=== PATIENT | female | born 1940 | race African-American/Black ===

== ENCOUNTER 2017-07-28 12:29 | Emergency (ER) | payer MEDICARE, BC ==
[~2017-07-28] VITALS: Ht 167.6 cm; Wt 100.0 kg
[2017-07-28] MEDS ORDERED: LOVA20TA2 PO (12:33)
[2017-07-28] MEDS ORDERED: CLOP300T2 PO (12:33)
[2017-07-28] MEDS ORDERED: FLUTICASONE PROPIONATE 50MCG/SPRAY BOTTLE BOTHNSTRLS SCH (13:30)
[2017-07-28 14:56] VITALS: BP 149/77
== END 2017-07-28 18:22 | disposition home or self-care (01) ==
LOC: ER 12:46
DX: R09.81 Nasal congestion (principal); I10 Essential (primary) hypertension; J44.9 Chronic obstructive pulmonary disease, unspecified; J98.11 Atelectasis
CPT/HCPCS: 71010; 99283